=== PATIENT | male | born 1970 ===

== ENCOUNTER 2017-04-03 18:57 | Emergency (ER) | payer SELFPAY ==
--- NOTE | 2017-04-03 19:10 | UC ---
Dizzy HPI HPI Summary: 47 year old male presents with sinus congestion and post nasal drip. - History Of Current Complaint Stated Complaint: UPPER RESPIRATORY Time Seen by Provider: 04/03/17 19:05 - Allergies/Home Medications Allergies/Adverse Reactions: Allergies Allergy/AdvReac Type Severity Reaction Status Date / Time No Known Allergies Allergy Verified 04/03/17 19:15 Review of Systems Constitutional: Negative Skin: Negative Eyes: Negative ENT: Sore Throat, Nasal Discharge, Sinus Congestion, Sinus Pain/Tenderness Respiratory: Negative Cardiovascular: Negative Gastrointestinal: Negative Genitourinary: Negative Motor: Negative Neurovascular: Negative Musculoskeletal: Negative Neurological: Negative Psychological: Negative All Other Systems Reviewed And Are Negative: Yes Physical Exam Triage Information Reviewed: Yes Eye Exam: Normal ENT Exam: Normal ENT: Positive: Pharyngeal erythema, Nasal congestion, Nasal drainage Dental Exam: Normal Neck exam: Normal Neck: Positive: 1 Respiratory Exam: Normal Cardiovascular Exam: Normal Abdominal Exam: Normal Musculoskeletal Exam: Normal Neurological Exam: Normal Psychological Exam: Normal Skin Exam: Normal Dizzy Course/Dx - Differential Dx/Diagnosis Provider Diagnoses: sinus congestion. allergic rhinnitis Discharge - Discharge Plan Condition: Stable Disposition: HOME Prescriptions: Amoxicillin/Clavulanate TAB* [Augmentin TAB 875*] 875 mg PO BID #20 tab LoraTADine TAB(NF) [Claritin 10 MG TAB(NF)] 10 mg PO DAILY #30 tab Methylprednisolone [Medrol Dosepak 4 MG*] 4 mg PO .SEE MANJEET INSTRUCTION #21 tab Patient Education Materials: Sinusitis (ED) Referrals: Salo GARCIA,Armando Noonan [Primary Care Provider] -
[2017-04-03 19:31] VITALS: BP 138/96
== END 2017-04-03 19:33 | disposition home or self-care (01) ==
LOC: UCCORT 18:57
DX: J30.9 Allergic rhinitis, unspecified (principal); R09.81 Nasal congestion
CPT/HCPCS: 93005; 99212; G0463